=== PATIENT | male | born 1940 | race Caucasian/White ===

== ENCOUNTER 2020-02-25 09:27 | Emergency (ER) | payer MEDICARE, OTHER ==
[~2020-02-25] VITALS: Ht 182.9 cm; Wt 95.3 kg
[2020-02-25] MEDS ORDERED: HYDROCODONE/APAP 5/325MG 1 EACH TABLET ONE ×2 (09:50→14:32)
--- NOTE | 2020-02-25 09:50 | NUR ---
patient came in to the er c/o left wrist pain. On room air, breathing evenly and unlabored. connected to the monitor and pulse ox. kept comfortable, will continue to monitor accordingly.
--- NOTE | 2020-02-25 09:57 | NUR ---
tamara at bedside for x-ray
[2020-02-25] MEDS ORDERED: HYDROCODONE/APAP 5/325MG 1 EACH TABLET PO ONE ×2 (10:00→14:30)
--- NOTE | 2020-02-25 12:35 | NUR ---
CALL THE CAR, [facility]#[phone] ETA [phone]
[2020-02-25 14:41] VITALS: BP 145/81
--- NOTE | 2020-02-25 14:43 | NUR ---
patient picked up by private ambulance in no distress. going back to snf in stable condition.
== END 2020-02-25 14:43 ==
LOC: ER 09:32
DX: S52.572A Other intraarticular fracture of lower end of left radius, initial encounter for closed fracture (principal); G40.909 Epilepsy, unspecified, not intractable, without status epilepticus; N40.0 Benign prostatic hyperplasia without lower urinary tract symptoms; F32.9 Major depressive disorder, single episode, unspecified; G47.00 Insomnia, unspecified; W18.39XA Other fall on same level, initial encounter; Y93.89 Activity, other specified; Y92.89 Other specified places as the place of occurrence of the external cause; Y99.8 Other external cause status
CPT/HCPCS: 73110; 73502

== ENCOUNTER 2020-03-17 09:53 | Outpatient (CLI) | payer MEDICARE, OTHER | END 2020-03-17 23:59 | disposition home or self-care (01) | LOC: CT 09:53 | PROVIDERS: ATTEND Student in an Organized Health Care Education/Training Program | DX: S42.292A Other displaced fracture of upper end of left humerus, initial encounter for closed fracture (principal); S52.502A Unspecified fracture of the lower end of left radius, initial encounter for closed fracture; M19.012 Primary osteoarthritis, left shoulder; M25.412 Effusion, left shoulder; X58.XXXA Exposure to other specified factors, initial encounter; Y93.89 Activity, other specified; Y92.89 Other specified places as the place of occurrence of the external cause; Y99.8 Other external cause status | CPT/HCPCS: 73200-TC ==